=== PATIENT | female | born 1990 | race Asian ===

== ENCOUNTER 2016-07-10 17:39 | Inpatient (IN) | payer OTHER ==
[~2016-07-10] VITALS: Ht 163.8 cm; Wt 56.5 kg
[~2016-07-10 17:39] MED LIST: CETI10TA10 PO; CHOLTAB3 PO; CITA20TA9 PO; CLON2TAB3 PO; COEN30CA6 PO; GABA-112 PO; QUET1TAB32 PO; SNG10 PO; SRQ25 PO; VTMD PO
[2016-07-10 18:27] LABS: URINE APPEARANCE CLEAR (CLEAR); URINE BILIRUBIN NEG (NEG); URINE COLOR DK YELLOW; URINE EPITHELIAL CELL AUTO >30 /lpf (0-5); URINE NITRITE NEG (NEG); URINE PH 6.5 (4.5-7.5); URINE SPECIFIC GRAVITY 1.023 (1.000-1.030); UROBILINOGEN NEG (NEG)
[2016-07-10] MEDS ORDERED: CHOL20007 PO (18:35)
[2016-07-10 18:38] LABS: MANUAL MICROSCOPIC REQUIRED? NO; REVIEW REQ? NO
[2016-07-10] MEDS ORDERED: CITA10TA4 PO (18:44)
[2016-07-10] MEDS ORDERED: ACETAMINOPHEN 500 MG TAB PO STA (18:44)
[2016-07-10 19:03] LABS: BENZODIAZEPINE, URINE NEG (NEG); COCAINE,URINE NEG (NEG); PHENCYCLIDINE, URINE NEG (NEG)
[2016-07-10 19:32] LABS: BUN/CREATININE RATIO 14.3 (10-20); CREATININE 0.76 mg/dl (0.60-1.20)
[2016-07-10 19:38] LABS: HEMATOCRIT 41.3 % (37-47); MEAN CELL VOLUME 92.2 fL (80-100); MEAN CORPUSCULAR HEMOGLOBIN 30.6 pg (25-34); MEAN CORPUSCULAR HGB CONC 33.2 g/dl (32-36); MEAN PLATELET VOLUME 8.9 fL (7.4-10.4); PLATELET COUNT 266 K/uL (130-400); RED BLOOD COUNT 4.48 M/uL (4.2-5.4); WHITE BLOOD COUNT 2.26 K/uL (4.8-10.8)
[2016-07-10 19:41] LABS: COMPLETE YES; EOSINOPHIL % 1.8 %; LYMPH ABS # 0.56 K/uL (1.2-3.4); LYMPHOCYTE % 24.8 %; NEUTROPHILS % 58.4 %
[2016-07-10 19:43] LABS: THYROID STIMULATING HORMONE 1.3 uIu/ml (0.300-4.500)
[2016-07-10 20:10] VITALS: O2SAT 98
[2016-07-10 20:28] VITALS: BP 112/73; PULSE 89; TEMP 37; Ht 163.8 cm; Wt 56.5 kg
[2016-07-10] MEDS ORDERED: GABA-112 PO (21:00)
[2016-07-10] MEDS ORDERED: PRVHFAIN INH (21:17)
[2016-07-10] MEDS ORDERED: CLON2TAB3 PO (21:20)
[2016-07-10] MEDS ORDERED: ALBUTEROL HFA 8 GM INHALER INH PRN (22:15)
[2016-07-10] MEDS ORDERED: hydrOXYzine HCL 25 MG TAB PO PRN ×2 (22:30)
[2016-07-10] MEDS ORDERED: MAGNESIUM HYDROXIDE SUSP 30 ML UDC PO PRN (22:30)
[2016-07-10] MEDS ORDERED: BISMUTH SUBSALICYLATE PER ML OMNICELL CHARGE PO PRN (22:30)
[2016-07-10] MEDS ORDERED: SODIUM CHLORIDE 0.65% NA SOLN 45 ML (OCEAN) PRN (22:30)
[2016-07-10] MEDS ORDERED: ALUMINUM/MAGNESIUM SUSP 30 ML UDC PO PRN (22:30)
[2016-07-10] MEDS ORDERED: ACETAMINOPHEN 325 MG TAB PO PRN (22:30)
[2016-07-10] MEDS ORDERED: NURSING VERBAL MED ORDER ONE (22:30)
[2016-07-10] MEDS: CLONAZEPAM 1 MG TAB PO SCH (22:39)
[2016-07-10] MEDS: GABAPENTIN 100 MG CAP PO SCH (22:39)
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
[2016-07-11 06:59] VITALS: BP_SYST 103; BP_SYST 106; BP_DIAS 66; BP_DIAS 73; PULSE 85; PULSE 92; TEMP 36.6
[2016-07-11] MEDS: GABAPENTIN 100 MG CAP PO SCH ×2 (08:59→21:49)
[2016-07-11] MEDS: CETIRIZINE HCL 10 MG TAB PO SCH (08:59)
[2016-07-11] MEDS: CITALOPRAM 20 MG TAB PO SCH (08:59)
[2016-07-11] MEDS: MONTELUKAST SOD 10 MG TAB PO SCH (08:59)
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
[2016-07-11] MEDS: CLONAZEPAM 1 MG TAB PO SCH (21:49)
[2016-07-12 06:51] VITALS: BP_SYST 105; BP_SYST 125; BP_DIAS 71; BP_DIAS 87; PULSE 80; PULSE 85; TEMP 36.8
[2016-07-12 08:45] LABS: BASO % 0.8 %; BASO ABS # 0.02 K/uL (0-0.2); COMPLETE YES; EOS % 1.6 %; HEMATOCRIT 41.7 % (37-47); IG% 0.4 %; LYMPH % 41.6 %; LYMPH ABS # 1.01 K/uL (1.2-3.4); MEAN CELL VOLUME 92.1 fL (80-100); MEAN CORPUSCULAR HEMOGLOBIN 30.2 pg (25-34); MEAN CORPUSCULAR HGB CONC 32.9 g/dl (32-36); MEAN PLATELET VOLUME 9.2 fL (7.4-10.4); MONO % 18.1 %; NEUT % 37.5 %; PLATELET COUNT 244 K/uL (130-400); RED BLOOD COUNT 4.53 M/uL (4.2-5.4); WHITE BLOOD COUNT 2.43 K/uL (4.8-10.8)
[2016-07-12] MEDS: CITALOPRAM 20 MG TAB PO SCH (08:51)
[2016-07-12] MEDS: MONTELUKAST SOD 10 MG TAB PO SCH (08:51)
[2016-07-12] MEDS: GABAPENTIN 100 MG CAP PO SCH ×2 (08:51→21:53)
[2016-07-12] MEDS: CETIRIZINE HCL 10 MG TAB PO SCH (08:51)
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
[2016-07-12] MEDS: CLONAZEPAM 1 MG TAB PO SCH (21:53)
[2016-07-13 07:06] VITALS: BP_SYST 109; BP_SYST 99; BP_DIAS 54; BP_DIAS 75; PULSE 61; PULSE 80; TEMP 36.7
[2016-07-13] MEDS: CITALOPRAM 20 MG TAB PO SCH (09:16)
[2016-07-13] MEDS: GABAPENTIN 100 MG CAP PO SCH ×2 (09:16→21:47)
[2016-07-13] MEDS: MONTELUKAST SOD 10 MG TAB PO SCH (09:17)
[2016-07-13] MEDS: CETIRIZINE HCL 10 MG TAB PO SCH (09:17)
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
[2016-07-13] MEDS: CLONAZEPAM 1 MG TAB PO SCH (21:47)
[2016-07-14 06:40] VITALS: BP_SYST 101; BP_SYST 103; BP_DIAS 65; BP_DIAS 70; PULSE 73; PULSE 94; TEMP 36.8
[2016-07-14 08:35] LABS: BASO % 1.2 %; BASO ABS # 0.03 K/uL (0-0.2); COMPLETE YES; EOS % 1.2 %; HEMATOCRIT 39.5 % (37-47); IG% 0.4 %; LYMPH ABS # 0.86 K/uL (1.2-3.4); MEAN CELL VOLUME 92.7 fL (80-100); MEAN CORPUSCULAR HEMOGLOBIN 30.3 pg (25-34); MEAN CORPUSCULAR HGB CONC 32.7 g/dl (32-36); MONO % 17.4 %; NEUT % 45.8 %; PLATELET COUNT 247 K/uL (130-400); RED BLOOD COUNT 4.26 M/uL (4.2-5.4); WHITE BLOOD COUNT 2.53 K/uL (4.8-10.8)
[2016-07-14] MEDS: GABAPENTIN 100 MG CAP PO SCH (09:38)
[2016-07-14] MEDS: MONTELUKAST SOD 10 MG TAB PO SCH (09:38)
[2016-07-14] MEDS: CETIRIZINE HCL 10 MG TAB PO SCH (09:38)
[2016-07-14] MEDS: CITALOPRAM 20 MG TAB PO SCH (09:38)
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
[2016-07-14] MEDS: CLONAZEPAM 1 MG TAB PO SCH (21:46)
[2016-07-14] MEDS: GABAPENTIN 300 MG CAP PO SCH (21:46)
[2016-07-15 06:58] VITALS: BP_SYST 109; BP_SYST 97; BP_DIAS 68; BP_DIAS 70; PULSE 69; PULSE 99; TEMP 36.5
[2016-07-15] MEDS: GABAPENTIN 300 MG CAP PO SCH ×3 (09:04→21:35)
[2016-07-15] MEDS: CITALOPRAM 20 MG TAB PO SCH (09:04)
[2016-07-15] MEDS: CETIRIZINE HCL 10 MG TAB PO SCH (09:05)
[2016-07-15] MEDS: MONTELUKAST SOD 10 MG TAB PO SCH (09:05)
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
[2016-07-15] MEDS: CLONAZEPAM 1 MG TAB PO SCH (21:35)
[2016-07-16 06:51] LABS: BASO % 0.3 %; BASO ABS # 0.01 K/uL (0-0.2); COMPLETE YES; EOS % 1.7 %; HEMATOCRIT 40.1 % (37-47); IG% 0.3 %; LYMPH % 32.1 %; LYMPH ABS # 0.92 K/uL (1.2-3.4); MEAN CELL VOLUME 93.3 fL (80-100); MEAN CORPUSCULAR HEMOGLOBIN 29.8 pg (25-34); MEAN CORPUSCULAR HGB CONC 31.9 g/dl (32-36); MEAN PLATELET VOLUME 8.9 fL (7.4-10.4); MONO % 9.1 %; NEUT % 56.5 %; PLATELET COUNT 260 K/uL (130-400); WHITE BLOOD COUNT 2.87 K/uL (4.8-10.8)
[2016-07-16 06:54] VITALS: BP_SYST 109; BP_SYST 111; BP_DIAS 71; BP_DIAS 74; PULSE 67; PULSE 77; TEMP 36.8
[2016-07-16] MEDS: CETIRIZINE HCL 10 MG TAB PO SCH (08:59)
[2016-07-16] MEDS: GABAPENTIN 300 MG CAP PO SCH (08:59)
[2016-07-16] MEDS: CITALOPRAM 20 MG TAB PO SCH (08:59)
[2016-07-16] MEDS: MONTELUKAST SOD 10 MG TAB PO SCH (08:59)
[2016-07-16] MEDS ORDERED: NRN300 PO (09:19)
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
== END 2016-07-16 11:02 | disposition home or self-care (01) | DRG 885 ==
LOC: ENRESERVDT → ENRESERVTM → C.EDB 17:40 → C.MHU 19:50
PROVIDERS: ADMIT Student in an Organized Health Care Education/Training Program; ATTEND Psychiatry & Neurology Psychiatry
DX: F31.9 Bipolar disorder, unspecified (principal); D72.819 Decreased white blood cell count, unspecified; J45.909 Unspecified asthma, uncomplicated

== ENCOUNTER → 2016-08-02 | Outpatient (CLI) | payer OTHER ==
[~2016-08-02] MED LIST changes: -CHOLTAB3 PO; -COEN30CA6 PO; -GABA-112 PO; +NRN300 PO; +PRVHFAIN INH; -QUET1TAB32 PO; -SRQ25 PO; -VTMD PO
[2016-08-02 17:07] LABS: BASO % 0.7 %; BASO ABS # 0.03 K/uL (0-0.2); COMPLETE YES; EOS % 2.3 %; HEMATOCRIT 39.1 % (37-47); LYMPH % 28.7 %; LYMPH ABS # 1.27 K/uL (1.2-3.4); MEAN CELL VOLUME 92.9 fL (80-100); MEAN CORPUSCULAR HEMOGLOBIN 30.2 pg (25-34); MEAN CORPUSCULAR HGB CONC 32.5 g/dl (32-36); MEAN PLATELET VOLUME 9.7 fL (7.4-10.4); MONO % 11.1 %; NEUT % 57.2 %; PLATELET COUNT 298 K/uL (130-400); RED BLOOD COUNT 4.21 M/uL (4.2-5.4); WHITE BLOOD COUNT 4.43 K/uL (4.8-10.8)
[2016-08-02 17:13] LABS: ALT/SGPT 25 U/L (12-78); AST/SGOT 21 U/L (15-37); BLOOD UREA NITROGEN 16 mg/dl (7-18); BUN/CREATININE RATIO 20.8 (10-20); CALCIUM 8.6 mg/dl (8.5-10.1); CARBON DIOXIDE 30 mmol/L (21-32); CHLORIDE 106 mmol/L (98-107); CREATININE 0.78 mg/dl (0.60-1.20); GLUCOSE 73 mg/dl (70-99); POTASSIUM 4.1 mmol/L (3.5-5.1); SODIUM 141 mmol/L (136-145)
[2016-08-02 17:23] LABS: ALB/GLOB RATIO 1.1 (0.9-2); ALKALINE PHOSPHATASE 63 U/L (45-117); CHOLESTEROL 155 mg/dl (0-200); CHOLESTEROL/HDL RATIO 2.2; HDL CHOLESTEROL 71 mg/dl; LDL CHOLESTEROL CALCULATED 55 mg/dl; TRIGLYCERIDES 146 mg/dl (0-150); VERY LOW DENSITY LIPOPROT CALC 29 mg/dl
== END | disposition home or self-care (01) ==
LOC: C.LABBC 14:09
PROVIDERS: ATTEND Internal Medicine
DX: D72.819 Decreased white blood cell count, unspecified (principal); E55.9 Vitamin D deficiency, unspecified; F30.9 Manic episode, unspecified; E53.8 Deficiency of other specified B group vitamins; Z86.39 Personal history of other endocrine, nutritional and metabolic disease

== ENCOUNTER → 2016-08-24 | Outpatient (CLI) | payer OTHER ==
[2016-08-24 16:52] LABS: BASO % 1.5 %; BASO ABS # 0.05 K/uL (0-0.2); COMPLETE YES; EOS % 2.3 %; LYMPH % 33.5 %; LYMPH ABS # 1.15 K/uL (1.2-3.4); MEAN CELL VOLUME 91.9 fL (80-100); MEAN CORPUSCULAR HGB CONC 32.6 g/dl (32-36); MEAN PLATELET VOLUME 9.9 fL (7.4-10.4); MONO % 9.6 %; NEUT % 53.1 %; PLATELET COUNT 291 K/uL (130-400); RED BLOOD COUNT 4.57 M/uL (4.2-5.4); WHITE BLOOD COUNT 3.43 K/uL (4.8-10.8)
== END | disposition home or self-care (01) ==
LOC: C.LABBC 14:52
PROVIDERS: ATTEND Internal Medicine
DX: D72.819 Decreased white blood cell count, unspecified (principal)

== ENCOUNTER → 2016-09-26 | Outpatient (CLI) | payer OTHER ==
[2016-09-26 16:52] LABS: BASO % 0.5 %; BASO ABS # 0.02 K/uL (0-0.2); COMPLETE YES; EOS % 1.4 %; HEMATOCRIT 41.8 % (37-47); LYMPH % 25.5 %; LYMPH ABS # 1.11 K/uL (1.2-3.4); MEAN CELL VOLUME 93.1 fL (80-100); MEAN CORPUSCULAR HEMOGLOBIN 30.3 pg (25-34); MEAN CORPUSCULAR HGB CONC 32.5 g/dl (32-36); MEAN PLATELET VOLUME 9.7 fL (7.4-10.4); NEUT % 64.6 %; PLATELET COUNT 307 K/uL (130-400); RED BLOOD COUNT 4.49 M/uL (4.2-5.4); WHITE BLOOD COUNT 4.36 K/uL (4.8-10.8)
== END | disposition home or self-care (01) ==
LOC: C.LABBC 14:04
PROVIDERS: ATTEND Internal Medicine
DX: D72.819 Decreased white blood cell count, unspecified (principal)

== ENCOUNTER → 2017-01-12 | Outpatient (CLI) | payer OTHER ==
--- NOTE | 2017-01-12 20:19 | DIAGNOSTIC IMAGING REPORT ---
CHEST 2 VIEWS ROUTINE CLINICAL HISTORY: 27 years-old Female presenting with DYSPNEA, chest pain, trouble breathing since yesterday morning. TECHNIQUE: PA and lateral views of the chest were obtained. COMPARISON: 01/09/2015. FINDINGS: Cardiomediastinal silhouette normal. Lungs and pleural spaces clear. Osseous structures normal. Upper abdomen normal. IMPRESSION: 1. No acute cardiopulmonary disease. Electronically signed by: Dane Damon M.D. 01/12/2017 8:18 PM Dictated Date/Time: 01/12/2017 8:17 PM
== END | disposition home or self-care (01) ==
LOC: C.RAD 20:05
PROVIDERS: ATTEND Internal Medicine
DX: R06.00 Dyspnea, unspecified (principal)

== ENCOUNTER → 2017-05-14 | Outpatient (CLI) | payer OTHER ==
[2017-05-14 15:43] LABS: BASO % 1.9 %; BASO ABS # 0.07 K/uL (0-0.2); EOS % 1.6 %; EOS ABS # 0.06 K/uL (0-0.5); HEMATOCRIT 42.8 % (37-47); HEMOGLOBIN 13.9 g/dL (12.0-16.0); LYMPH % 30.6 %; LYMPH ABS # 1.12 K/uL (1.2-3.4); MEAN CORPUSCULAR HEMOGLOBIN 31.2 pg (25-34); MEAN CORPUSCULAR HGB CONC 32.5 g/dl (32-36); MEAN PLATELET VOLUME 9.5 fL (7.4-10.4); MONO % 6.8 %; MONO ABS # 0.25 K/uL (0.11-0.59); NEUT % 59.1 %; NEUT ABS # 2.16 K/uL (1.4-6.5); PLATELET COUNT 299 K/uL (130-400); RED CELL DISTRIBUTION WIDTH CV 12.7 % (11.5-14.5); RED CELL DISTRIBUTION WIDTH SD 44.3 fL (36.4-46.3); WHITE BLOOD COUNT 3.66 K/uL (4.8-10.8)
[2017-05-14 16:01] LABS: ALBUMIN 4.1 gm/dl (3.4-5.0); BLOOD UREA NITROGEN 14 mg/dl (7-18); CALCIUM 9.5 mg/dl (8.5-10.1); CARBON DIOXIDE 29 mmol/L (21-32); CREATININE 0.78 mg/dl (0.60-1.20); GLUCOSE 71 mg/dl (70-99); SODIUM 137 mmol/L (136-145)
[2017-05-14 16:10] LABS: ALKALINE PHOSPHATASE 57 U/L (45-117); ALT/SGPT 22 U/L (12-78); AST/SGOT 15 U/L (15-37); TOTAL PROTEIN 7.9 gm/dl (6.4-8.2)
== END | disposition home or self-care (01) ==
LOC: C.LAB1850 14:13
PROVIDERS: ATTEND Internal Medicine
DX: E55.9 Vitamin D deficiency, unspecified (principal); E53.8 Deficiency of other specified B group vitamins; D72.819 Decreased white blood cell count, unspecified; Z86.39 Personal history of other endocrine, nutritional and metabolic disease; F32.9 Major depressive disorder, single episode, unspecified